=== PATIENT | female | born 1970 | race African-American/Black ===

== ENCOUNTER 2019-06-16 23:15 | Emergency (ER) | payer OTHER, SELFPAY ==
--- NOTE | 2019-06-17 00:02 | RAD ---
2 view chest: [06/17/2019] Comparison:03/29/2012 HISTORY: Cough with shortness of breath FINDINGS: Heart and mediastinal contours are grossly unremarkable. No pneumothorax or pleural fluid. No focal consolidation or alveolar edema. IMPRESSION: No acute findings.
[2019-06-17] MEDS ORDERED: predniSONE 20 MG TAB ONE (00:36)
== END 2019-06-17 00:54 | disposition home or self-care (01) ==
LOC: NAV ERS 23:15
DX: J20.9 Acute bronchitis, unspecified (principal); I10 Essential (primary) hypertension
CPT/HCPCS: 71046; 94640; 94760; J7512; J7620

== ENCOUNTER 2024-03-31 11:27 | Emergency (ER) | payer SELFPAY ==
[~2024-03-31 11:27] MED LIST: Iopamidol 370 76% 100 ML VIAL ONE
[2024-03-31] MEDS ORDERED: Sodium Chloride 0.9% 500 ML ONE (11:52)
[2024-03-31 12:58] LABS: Hematocrit 37.2 % (36.0-47.0); Hemoglobin 12.1 g/dL (12.0-16.0); Mean Corpuscular HGB CONC 32.5 g/dL (32.0-36.0); Mean Corpuscular Hemoglobin 28.7 pg (27.0-31.0); Mean Corpuscular Volume 88.3 fl (78.0-98.0); Mean Platelet Volume 6.9 fL (7.4-10.4); Platelet Count 248 10x3/uL (130-400); RBC Distribution Width 12.8 % (11.5-14.5); Red Blood Cell (RBC) Count 4.21 mill/uL (4.20-5.40); White Blood Cell (WBC) Count 5.1 10x3/uL (4.8-10.8)
[2024-03-31 13:06] LABS: ALT (SGPT) 16 U/L (8-55); AST (SGOT) 16 U/L (5-34); Albumin 3.5 g/dL (3.5-5.0); Alkaline Phosphatase 92 U/L (40-110); Anion Gap 12 mmol/L (10-20); BUN (Urea Nitrogen) 14 mg/dL (9.8-20.1); Bilirubin, Total 0.4 mg/dL (0.2-1.2); Calc. Creatinine Clearance 0 mL/min (70-130); Calcium 9.4 mg/dL (7.8-10.44); Carbon Dioxide 20 mmol/L (22-29); Chloride 109 mmol/L (98-107); Estimated GFR 65; Globulin 3.2 g/dL (2.4-3.5); Glucose 93 mg/dL (70-105); Lipase 22 U/L (8-78); Potassium 3.8 mmol/L (3.5-5.1); Protein, Total 6.7 g/dL (6.0-8.3); Sodium 137 mmol/L (136-145)
[2024-03-31 13:11] LABS: Troponin I 0.018 ng/mL (< 0.028)
[2024-03-31 13:15] LABS: MDiff Complete? YES
[2024-03-31 13:39] LABS: Band 1 % (5-11); Eosinophils 8 % (0-10); Lymphocytes 37 % (21-51); Monocytes 6 % (0-10); Neutrophil 47 % (42-75)
[2024-03-31 13:42] LABS: RBC Morph Comment Within Normal Limits
[2024-03-31 13:43] LABS: Platelet Adequacy Comment Appears Adequate; Toxic Granulation SLIGHT
== END 2024-03-31 14:56 | disposition home or self-care (01) ==
LOC: NAV ERS 11:27
DX: R55 Syncope and collapse (principal); I10 Essential (primary) hypertension; R91.1 Solitary pulmonary nodule; Z79.899 Other long term (current) drug therapy
CPT/HCPCS: 36415; 71045; 71275; 80053; 83690; 84484; 85025; 85379; 93005; J7030; Q9967